=== PATIENT | male | born 1985 | race Hispanic/Latino ===

== ENCOUNTER 2025-05-03 10:30 | Emergency (ER) | payer SELFPAY ==
[~2025-05-03] VITALS: Ht 170.2 cm; Wt 91.1 kg
[2025-05-03 13:51] VITALS: BP 128/74; TEMP 96.6; O2SAT 98
== END 2025-05-03 13:53 | disposition home or self-care (01) ==
LOC: M ED 10:33
DX: S00.81XA Abrasion of other part of head, initial encounter (principal); S00.83XA Contusion of other part of head, initial encounter; W22.8XXA Striking against or struck by other objects, initial encounter; Y92.9 Unspecified place or not applicable; Y93.89 Activity, other specified; Y99.0 Civilian activity done for income or pay